=== PATIENT | female | born 1975 | race Two or more races ===

== ENCOUNTER 2017-01-06 23:27 | Inpatient (IN) | payer OTHER ==
[~2017-01-06] VITALS: Ht 162.6 cm; Wt 96.7 kg
[2017-01-07] MEDS ORDERED: ALBUTEROL/IPRATROPIUM 2.5MG/0.5MG, 3 ML NPPB ONE
[2017-01-07] MEDS ORDERED: ALBUTEROL/IPRATROPIUM 2.5MG/0.5MG, 3 ML ONE (00:09)
[2017-01-07] MEDS ORDERED: CLON2TAB2 PO (00:10)
[2017-01-07 00:20] LABS: HEMOGLOBIN 13.8 g/dL (11.7-16.4); WHITE BLOOD COUNT 11.6 x10^3/uL (3.4-10)
[2017-01-07 00:25] LABS: DAU SCREEN DISCLAIMER
[2017-01-07 00:29] LABS: ASPARTATE AMINO TRANSFERASE 20 U/L (15-37); BLOOD UREA NITROGEN 12 mg/dL (7-18)
[2017-01-07 00:37] LABS: ACETAMINOPHEN < 2 mcg/mL (10-30)
[2017-01-07 03:22] VITALS: BP 120/81
[2017-01-07] MEDS: SODIUM CHLORIDE 0.9% 1,000 ML IV SCH ×3 (04:56→17:25)
[2017-01-07] MEDS: ENOXAPARIN 40 MG/0.4 ML SQ SCH (04:59)
[2017-01-07] MEDS ORDERED: ONDANSETRON 2MG/ML, 2ML IVPush PRN (05:00)
[2017-01-07] MEDS ORDERED: ENALAPRILAT 1.25 MG/ML, 2ML IVPush PRN (05:00)
[2017-01-07 06:28] VITALS: BP_SYST 104; BP_SYST 113; BP_DIAS 69; BP_DIAS 72
[2017-01-07] MEDS: ACETAMINOPHEN 325 MG TABLET PO PRN (12:45)
[2017-01-07 13:18] VITALS: BP 124/72
[2017-01-07 20:24] VITALS: BP 100/61
[2017-01-08] MEDS: SODIUM CHLORIDE 0.9% 1,000 ML IV SCH ×2 (00:31→08:07)
[2017-01-08 01:33] VITALS: BP 106/57
[2017-01-08] MEDS: ENOXAPARIN 40 MG/0.4 ML SQ SCH (06:10)
[2017-01-08 08:15] VITALS: BP 96/65
[2017-01-08] MEDS: ACETAMINOPHEN 325 MG TABLET PO PRN (08:17)
[2017-01-08 12:15] VITALS: BP 104/64
[2017-01-08 20:00] VITALS: BP 106/71
[2017-01-09 01:50] VITALS: BP 108/71
[2017-01-09] MEDS: ENOXAPARIN 40 MG/0.4 ML SQ SCH (06:16)
[2017-01-09 07:39] VITALS: BP 108/73
[2017-01-09 15:05] VITALS: BP 112/76
[2017-01-09 20:00] VITALS: BP 105/68
[2017-01-10 02:00] VITALS: BP 106/67
[2017-01-10] MEDS: ENOXAPARIN 40 MG/0.4 ML SQ SCH (05:39)
[2017-01-10 07:45] VITALS: BP 109/63
[2017-01-10 10:32] VITALS: BP 115/82
[2017-01-10 19:43] VITALS: BP 110/75
[2017-01-10] MEDS ORDERED: DIPHENHYDRAMINE 50 MG CAPSULE PO ONE (21:00)
[2017-01-11] MEDS: ENOXAPARIN 40 MG/0.4 ML SQ SCH (06:00)
[2017-01-11 07:33] VITALS: BP 106/71
== END 2017-01-11 16:59 | disposition home or self-care (01) | DRG 918 ==
LOC: ED 01-07 01:41 → EDIP 01-07 02:40 → 4WST 01-07 03:39 → 3E 01-10 10:24
PROVIDERS: ADMIT Internal Medicine; ATTEND Internal Medicine
DX: T42.4X2A Poisoning by benzodiazepines, intentional self-harm, initial encounter (principal); F32.9 Major depressive disorder, single episode, unspecified; E11.9 Type 2 diabetes mellitus without complications; F17.210 Nicotine dependence, cigarettes, uncomplicated; J06.9 Acute upper respiratory infection, unspecified; Z91.5 Personal history of self-harm; Y92.89 Other specified places as the place of occurrence of the external cause; Z88.0 Allergy status to penicillin
CPT/HCPCS: 36415; 71010; 80053; 80307; 80329; 84443; 84703; 85025; 99285; J1650; J7620; G0378; G0479; G0480; J7030